=== PATIENT | female | born 1985 | race Caucasian/White ===

== ENCOUNTER → 2018-07-11 | Outpatient (CLI) | payer OTHER ==
[2018-07-11 11:01] LABS: PLATELET COUNT, AUTOMATED 247 K/uL (150-450)
== END ==
LOC: LAB 08:16
PROVIDERS: ATTEND Student in an Organized Health Care Education/Training Program
DX: Z34.91 Encounter for supervision of normal pregnancy, unspecified, first trimester (principal)
CPT/HCPCS: 36415; 81001; 84702; 85025; 86592; 86703; 86762; 86850; 86900; 86901; 87088; 87340

== ENCOUNTER → 2018-07-24 | Outpatient (CLI) | payer OTHER | LOC: LAB 11:10 | PROVIDERS: ATTEND Student in an Organized Health Care Education/Training Program | DX: Z34.91 Encounter for supervision of normal pregnancy, unspecified, first trimester (principal) | CPT/HCPCS: 87491; 87591 ==

== ENCOUNTER → 2018-09-29 | Outpatient (CLI) | payer OTHER ==
--- NOTE | 2018-09-29 10:37 | RADIOLOGY IMAGING REPORT ---
FACILITY: [facility] [place] PATIENT NAME: Freda Colon : 1985 MR: [id number] V: [id number] EXAM DATE: ORDERING PHYSICIAN: MARTHA SANCHEZ TECHNOLOGIST: Location: [facility] [place] Patient: Freda Colon : 1985 Visit/Account:[id number] Date of Sevice: 09/29/2018 EXAMINATION: Ultrasound transabdominal OB > 14 weeks with anatomic evaluation HISTORY: Anatomic survey COMPARISON: None. TECHNIQUE: Transabdominal imaging was performed for assessment of the fetus and maternal pelvic structures. T ransvaginal imaging was not performed. FINDINGS: Placenta: Posterior without previa. Uterus: Gravid, otherwise normal Cervix: Long and closed. Maternal Ovaries: Not visualized. Maternal and other adnexa findings: Not visualized Intrauterine gestations: One. presentation: Variable heart rate: Normal and regular at 135 bpm Amniotic fluid index: 12.63 cm Largest amniotic fluid pocket: 4.27 cm Gestational Parameters: BPD: 4.41 cm 19 weeks/ three days, 77% HC: 16.44 cm 19 weeks/ two days, 66% AC: 13.5 cm 19 weeks/ zero days, 55% FL: 2.77 cm 18 weeks/ four days, 34% Average ultrasound age (AUA): 19 weeks/one days, JOSE LUIS 02/22/2019 Estimated gestational age by LMP: 18 weeks/five days, JOSE LUIS 02/25/2019 Estimated weight (EFW): 258 grams +/- 38 grams EFW for LMP: 50th percentile Anatomic Survey: Intracranial structures, 4-chamber heart, stomach, kidneys, urinary bladder, spine, 3-vessel cord and cord insertion are unremarkable. Two upper and two lower extremities visualized. Cardiac ventricula r outflow tracts, palate and lips are unremarkable in appearance. IMPRESSION: Single viable fetus in varied presentation with an estimated gestational age by measurem ents of 19 weeks and one day. Estimated gestational age by LMP is 18 weeks and five days. Estimated weight is 258 g which is equivalent to the 50th percentile Report Dictated By: Germania Banks MD at 09/29/2018 10:24 AM Report E-Signed By: Germania Banks MD at 09/29/2018 10:29 AM WSN:[id number]
== END ==
LOC: RAD 08:09
PROVIDERS: ATTEND Student in an Organized Health Care Education/Training Program
DX: Z3A.13 13 weeks gestation of pregnancy (principal)